=== PATIENT | male | born 1985 | race Caucasian/White ===

== ENCOUNTER 2019-10-07 17:11 | Outpatient (CLI) | payer OTHER | END 2019-10-07 17:28 | disposition home or self-care (01) | LOC: LAB 17:11 | DX: R10.2 Pelvic and perineal pain (principal); N50.819 Testicular pain, unspecified ==

== ENCOUNTER 2019-10-08 07:31 | Outpatient (CLI) | payer OTHER | END 2019-10-08 07:38 | disposition home or self-care (01) | LOC: SONOGRAMA 07:31 | DX: N50.819 Testicular pain, unspecified (principal); R10.2 Pelvic and perineal pain ==

== ENCOUNTER 2019-10-10 11:45 | Outpatient (CLI) | payer OTHER | END 2019-10-10 12:00 | disposition home or self-care (01) | LOC: LAB 11:45 | DX: N50.89 Other specified disorders of the male genital organs (principal); Z12.5 Encounter for screening for malignant neoplasm of prostate; Z11.3 Encounter for screening for infections with a predominantly sexual mode of transmission ==